=== PATIENT | female | born 1990 | race Two or more races ===

== ENCOUNTER 2016-08-14 05:47 | Emergency (ER) | payer OTHER ==
[~2016-08-14] VITALS: Ht 160 cm; Wt 68.0 kg
[2016-08-14 05:48] VITALS: BP 125/67
[2016-08-14 10:10] LABS: Hepatitis B Surface Antibody Negative
== END 2016-08-14 07:20 | disposition home or self-care (01) ==
LOC: ER 05:55
DX: S51.832A Puncture wound without foreign body of left forearm, initial encounter (principal); W27.3XXA Contact with needle (sewing), initial encounter; Y93.89 Activity, other specified; Y99.8 Other external cause status; Y92.89 Other specified places as the place of occurrence of the external cause
CPT/HCPCS: 36415; 86703; 86706; 86803; 87340

== ENCOUNTER → 2017-07-09 | Outpatient (CLI) | payer BC ==
[2017-07-09 07:58] LABS: Urine WBC None Seen /hpf (0 - 5)
[2017-07-09 08:07] LABS: Basophils # (auto) 0 uL; Basophils % (auto) 0.4 % (0.0-2.0); Eosinophils # (auto) 0.2 uL; Eosinophils % (auto) 2.1 % (0.0-7.0); Hematocrit 40.4 % (36.0-46.0); Hemoglobin 13.8 g/dL (12.2-16.2); Lymphocytes # (auto) 3.1 uL; Lymphocytes % (auto) 43.8 % (10.0-50.0); Mean Corpuscular Hemoglobin 30.7 pg (28.0-32.0); Mean Corpuscular Hgb Conc. 34.3 g/dL (32.0-36.0); Mean Corpuscular Volume 89.6 fL (80.0-100.0); Monocytes # (auto) 0.5 uL; Monocytes % (auto) 6.4 % (0.0-12.0); Neutrophils # (auto) 3.4 uL; Neutrophils % (auto) 47.3 % (37.0-80.0); Nucleated Red Blood Cells % 0.1 %; Platelet Count (auto) 259 10^3/uL (140-450); Red Cell Distribution Width 12.6 % (11.8-14.3); White Blood Cell 7.2 10^3/uL (4.4-10.8)
[2017-07-09 08:45] LABS: Urine Bacteria NONE SEEN /hpf (None Seen); Urine Blood Negative /uL (Negative); Urine Specific Gravity 1.021 (1.001-1.035)
[2017-07-09 08:47] LABS: BUN/Creatinine Ratio 18.5; Potassium 3.7 mmol/L (3.5-5.1)
[2017-07-09 08:48] LABS: Calcium 8.6 mg/dL (8.5-10.1)
[2017-07-09 08:49] LABS: Albumin 4.3 g/dL (3.4-5.0); Bilirubin, Total 1.4 mg/dL (0.2-1.0); Total Protein 7.6 g/dL (6.4-8.2)
== END | disposition home or self-care (01) ==
LOC: LAB 07:41
PROVIDERS: ATTEND Internal Medicine
DX: Z12.4 Encounter for screening for malignant neoplasm of cervix (principal); R53.1 Weakness
CPT/HCPCS: 36415; 80053; 80061; 81001; 82306; 83036; 84443; 85025

== ENCOUNTER → 2018-01-01 | Outpatient (CLI) | payer BC ==
[2018-01-01 08:55] LABS: Basophils # (auto) 0 uL; Basophils % (auto) 0.5 % (0.0-2.0); Eosinophils # (auto) 0.1 uL; Eosinophils % (auto) 2.6 % (0.0-7.0); Hematocrit 40.4 % (36.0-46.0); Hemoglobin 13.8 g/dL (12.2-16.2); Lymphocytes # (auto) 2.9 uL; Lymphocytes % (auto) 52.9 % (10.0-50.0); Mean Corpuscular Hemoglobin 30.4 pg (28.0-32.0); Mean Corpuscular Hgb Conc. 34.2 g/dL (32.0-36.0); Mean Corpuscular Volume 88.9 fL (80.0-100.0); Monocytes # (auto) 0.5 uL; Neutrophils # (auto) 1.9 uL; Nucleated Red Blood Cells % 0.1 %; Platelet Count (auto) 252 10^3/uL (140-450); Red Blood Cells 4.54 10^6/uL (4.0-5.20); Red Cell Distribution Width 12.4 % (11.8-14.3); White Blood Cell 5.5 10^3/uL (4.4-10.8)
[2018-01-01 09:13] LABS: BUN/Creatinine Ratio 12.7; Potassium 3.4 mmol/L (3.5-5.1); Uric Acid 5.3 mg/dL (2.6-6.0)
== END | disposition home or self-care (01) ==
LOC: LAB 08:12
PROVIDERS: ATTEND Internal Medicine
DX: Z12.4 Encounter for screening for malignant neoplasm of cervix (principal); R53.1 Weakness
CPT/HCPCS: 36415; 80048; 82043; 82306; 83036; 84443; 84550; 85025

== ENCOUNTER → 2018-03-18 | Outpatient (CLI) | payer BC | END | disposition home or self-care (01) | LOC: LAB 07:43 | DX: Z11.1 Encounter for screening for respiratory tuberculosis (principal); Z12.4 Encounter for screening for malignant neoplasm of cervix; N39.0 Urinary tract infection, site not specified | CPT/HCPCS: 36415; 86706; 86735; 86762; 86765; 86787 ==

== ENCOUNTER → 2018-08-19 | Outpatient (CLI) | payer OTHER | END | disposition home or self-care (01) | LOC: LAB 13:30 | PROVIDERS: ATTEND Preventive Medicine Preventive Medicine/Occupational Environmental Medicine | DX: Z02.1 Encounter for pre-employment examination (principal) | CPT/HCPCS: 36415; 86706; 86735; 86762; 86765 ==

== ENCOUNTER → 2019-04-21 | Outpatient (CLI) | payer BC ==
[2019-04-21 09:00] LABS: Basophils # (auto) 0 uL; Basophils % (auto) 0.6 % (0.0-2.0); Eosinophils # (auto) 0.1 uL; Eosinophils % (auto) 1.8 % (0.0-7.0); Hematocrit 42.6 % (36.0-46.0); Hemoglobin 14.2 g/dL (12.2-16.2); Lymphocytes # (auto) 3.4 uL; Lymphocytes % (auto) 46.1 % (10.0-50.0); Mean Corpuscular Hemoglobin 30.1 pg (28.0-32.0); Mean Corpuscular Hgb Conc. 33.3 g/dL (32.0-36.0); Mean Corpuscular Volume 90.2 fL (80.0-100.0); Monocytes # (auto) 0.5 uL; Monocytes % (auto) 7.1 % (0.0-12.0); Neutrophils # (auto) 3.2 uL; Neutrophils % (auto) 44.4 % (37.0-80.0); Nucleated Red Blood Cells % 0.2 %; Platelet Count (auto) 246 10^3/uL (140-450); Red Blood Cells 4.73 10^6/uL (4.0-5.20); Red Cell Distribution Width 12.6 % (11.8-14.3); White Blood Cell 7.3 10^3/uL (4.4-10.8)
[2019-04-21 09:12] LABS: Urine Bacteria FEW /hpf (None Seen); Urine Blood Negative /uL (Negative); Urine Specific Gravity 1.004 (1.001-1.035); Urine WBC 1 /hpf (0 - 5)
[2019-04-21 09:25] LABS: Albumin 4.3 g/dL (3.4-5.0); Potassium 3.5 mmol/L (3.5-5.1)
[2019-04-21 09:28] LABS: BUN/Creatinine Ratio 14.3; Bilirubin, Total 2.4 mg/dL (0.2-1.0); Total Protein 7.7 g/dL (6.4-8.2)
== END | disposition home or self-care (01) ==
LOC: LAB 08:45
PROVIDERS: ATTEND Internal Medicine
DX: Z13.228 Encounter for screening for other metabolic disorders (principal); Z13.21 Encounter for screening for nutritional disorder; D51.0 Vitamin B12 deficiency anemia due to intrinsic factor deficiency; E55.9 Vitamin D deficiency, unspecified; R73.09 Other abnormal glucose; J44.9 Chronic obstructive pulmonary disease, unspecified
CPT/HCPCS: 36415; 80053; 81001; 82607; 83036; 84443; 85025

== ENCOUNTER 2019-11-02 19:21 | Emergency (ER) | payer BC ==
[~2019-11-02] VITALS: Ht 160 cm; Wt 68.0 kg
[2019-11-02 20:16] VITALS: BP 108/63
== END 2019-11-02 20:45 | disposition home or self-care (01) ==
LOC: EEVIPCON 19:21 → ER 19:21
DX: J02.9 Acute pharyngitis, unspecified (principal); Z20.828 Contact with and (suspected) exposure to other viral communicable diseases
CPT/HCPCS: 71045; 87070; 87804; 87880; 99284; U0003

== ENCOUNTER → 2020-02-09 | Outpatient (CLI) | payer BC ==
[2020-02-09 15:12] LABS: Urine Blood Negative /uL (Negative); Urine Specific Gravity 1.021 (1.001-1.035)
[2020-02-09 15:13] LABS: Basophils # (auto) 0 10 ^3/uL (0-0.2); Basophils % (auto) 0.4 % (0.0-2.0); Eosinophils # (auto) 0.1 10 ^3/uL (0-0.8); Eosinophils % (auto) 2.6 % (0.0-7.0); Hematocrit 42.4 % (36.0-46.0); Hemoglobin 13.8 g/dL (12.2-16.2); Lymphocytes # (auto) 1.5 10 ^3/uL (0.4-5.4); Lymphocytes % (auto) 31.5 % (10.0-50.0); Mean Corpuscular Hemoglobin 29.4 pg (28.0-32.0); Mean Corpuscular Hgb Conc. 32.7 g/dL (32.0-36.0); Mean Corpuscular Volume 90.1 fL (80.0-100.0); Monocytes # (auto) 0.4 10 ^3/uL (0-1.3); Neutrophils # (auto) 2.7 10 ^3/uL (1.6-8.6); Neutrophils % (auto) 56.5 % (37.0-80.0); Platelet Count (auto) 238 10^3/uL (140-450); Red Cell Distribution Width 12.6 % (11.8-14.3); White Blood Cell 4.8 10^3/uL (4.4-10.8)
[2020-02-09 15:37] LABS: Calcium 8.5 mg/dL (8.5-10.1); Magnesium 2.3 mg/dL (1.6-2.6); Potassium 3.8 mmol/L (3.5-5.1); Uric Acid 3.9 mg/dL (2.6-6.0)
[2020-02-09 15:42] LABS: BUN/Creatinine Ratio 17.5; Bilirubin, Total 1.4 mg/dL (0.2-1.0)
== END | disposition home or self-care (01) ==
LOC: LAB 14:47
PROVIDERS: ATTEND Internal Medicine
DX: Z13.29 Encounter for screening for other suspected endocrine disorder (principal); Z13.21 Encounter for screening for nutritional disorder; R73.09 Other abnormal glucose; J44.9 Chronic obstructive pulmonary disease, unspecified
CPT/HCPCS: 36415; 80053; 80061; 81003; 82306; 82607; 83036; 83735; 84443; 84550; 85025

== ENCOUNTER 2020-04-07 11:24 | Inpatient (IN) | payer BC ==
[~2020-04-07] VITALS: Ht 172.7 cm; Wt 69.0 kg
[2020-04-07 12:01] LABS: Basophils # (auto) 0 10 ^3/uL (0-0.2); Basophils % (auto) 0.2 % (0.0-2.0); Eosinophils # (auto) 0 10 ^3/uL (0-0.8); Hematocrit 40.9 % (36.0-46.0); Hemoglobin 13.9 g/dL (12.2-16.2); Lymphocytes # (auto) 0.5 10 ^3/uL (0.4-5.4); Lymphocytes % (auto) 3.5 % (10.0-50.0); Mean Corpuscular Hemoglobin 30.6 pg (28.0-32.0); Mean Corpuscular Hgb Conc. 33.9 g/dL (32.0-36.0); Mean Corpuscular Volume 90.2 fL (80.0-100.0); Monocytes # (auto) 0.9 10 ^3/uL (0-1.3); Monocytes % (auto) 6.5 % (0.0-12.0); Neutrophils # (auto) 12.9 10 ^3/uL (1.6-8.6); Neutrophils % (auto) 89.8 % (37.0-80.0); Nucleated Red Blood Cells % 0.1 %; Platelet Count (auto) 266 10^3/uL (140-450); Red Blood Cells 4.54 10^6/uL (4.0-5.20); Red Cell Distribution Width 12.6 % (11.8-14.3); White Blood Cell 14.4 10^3/uL (4.4-10.8)
[2020-04-07 12:20] LABS: Alanine Aminotransferase 16 U/L (13-56); Anion Gap 8 (5-15); Aspartate Aminotransferase 18 U/L (15-37); BUN/Creatinine Ratio 15.2; Blood Alcohol < 3.0 mg/dL (0-5); Blood Urea Nitrogen 12 mg/dL (7-18); Calcium 8.9 mg/dL (8.5-10.1); Carbon Dioxide 22 mmol/L (21-32); Chloride 109 mmol/L (98-107); GFR African American 109 mL/min; GFR Non-African American 90 mL/min; Glucose 146 mg/dL (74-106); Potassium 3.3 mmol/L (3.5-5.1); Salicylate 19.9 mg/dL (2.8-20.0); Sodium 139 mmol/L (136-145)
[2020-04-07 12:23] LABS: Alkaline Phosphatase 45 U/L (45-117); Bilirubin, Total 1.3 mg/dL (0.2-1.0); Total Protein 7.3 g/dL (6.4-8.2)
[2020-04-07 12:27] LABS: Acetaminophen < 2.0 ug/mL (10-30)
[2020-04-07] MEDS ORDERED: MORPHINE SULF INJ 2 MG/ML SYRINGE 1ML IV PRN (15:15)
[2020-04-07] MEDS ORDERED: LORazepam 2MG/ML-1ML VIAL IV PRN ×2 (15:15→17:00)
[2020-04-07] MEDS ORDERED: SODIUM CHLORIDE 0.9% 1,000 ML IV SCH (15:15)
[2020-04-07] MEDS ORDERED: ONDANSETRON HCL 4 MG/2 ML VIAL IV PRN (15:15)
[2020-04-07] MEDS ORDERED: LABETALOL HCL 5 MG/ML 4ML SYRINGE IV PRN (15:15)
[2020-04-07] MEDS ORDERED: NITROGLYCERIN 0.4 MG SL TAB SL PRN (15:15)
[2020-04-07] MEDS ORDERED: POTASSIUM CHL 20MEQ/100ML 100 ML IV ONE (15:15)
[2020-04-07 16:29] LABS: Urine Amorphous Crystal FEW /hpf (None Seen); Urine Bacteria FEW /hpf (None Seen); Urine Blood 1+ /uL (Negative); Urine Hyaline Cast FEW /lpf (0 - 2); Urine Mucus FEW (None Seen); Urine Specific Gravity 1.016 (1.001-1.035); Urine WBC 5 /hpf (0 - 5)
[2020-04-07 16:42] LABS: Alcohol, Urine < 3.0 mg/dL (0-10); Amphetamine Screen, Urine NEGATIVE (NEGATIVE); Barbiturate Scree,Urine NEGATIVE (NEGATIVE); Benzodiazephine Screen, Urine NEGATIVE (NEGATIVE); Cannabinoid Screen, Urine NEGATIVE (NEGATIVE); Cocaine Screen, Urine NEGATIVE (NEGATIVE); Opiate Scree,Urine NEGATIVE (NEGATIVE); Phencyclidine Screen, Urine NEGATIVE (NEGATIVE)
[2020-04-07] MEDS ORDERED: SERT-274 PO (18:10)
[2020-04-07] MEDS ORDERED: DIPH-515 PO (18:12)
[2020-04-07] MEDS ORDERED: MELA5TAB10 PO (18:12)
[2020-04-07 21:56] VITALS: BP 104/77
[2020-04-07] MEDS ORDERED: BUDESONIDE (INHALATION) 180 MCG IH IN SCH (22:00)
[2020-04-07] MEDS ORDERED: ALBUTEROL SULF HFA 90MCG INH 200DOSE IN SCH (22:00)
[2020-04-07] MEDS: DOXYCYCLINE 100MG/250ML 250 ML IV SCH (22:09)
[2020-04-08 04:33] VITALS: BP 106/67
[2020-04-08 07:09] LABS: Basophils # (auto) 0 10 ^3/uL (0-0.2); Basophils % (auto) 0.3 % (0.0-2.0); Eosinophils # (auto) 0.1 10 ^3/uL (0-0.8); Eosinophils % (auto) 1.1 % (0.0-7.0); Hematocrit 34.7 % (36.0-46.0); Hemoglobin 11.9 g/dL (12.2-16.2); Lymphocytes # (auto) 1.5 10 ^3/uL (0.4-5.4); Lymphocytes % (auto) 16.7 % (10.0-50.0); Mean Corpuscular Hemoglobin 31.3 pg (28.0-32.0); Mean Corpuscular Hgb Conc. 34.3 g/dL (32.0-36.0); Mean Corpuscular Volume 91.3 fL (80.0-100.0); Monocytes # (auto) 0.6 10 ^3/uL (0-1.3); Monocytes % (auto) 6.5 % (0.0-12.0); Neutrophils # (auto) 6.7 10 ^3/uL (1.6-8.6); Neutrophils % (auto) 75.4 % (37.0-80.0); Nucleated Red Blood Cells % 0.1 %; Platelet Count (auto) 231 10^3/uL (140-450); Red Cell Distribution Width 13.1 % (11.8-14.3); White Blood Cell 8.9 10^3/uL (4.4-10.8)
[2020-04-08 07:20] LABS: Albumin 3.4 g/dL (3.4-5.0); Calcium 8.3 mg/dL (8.5-10.1); Magnesium 2.2 mg/dL (1.6-2.6); Potassium 3.3 mmol/L (3.5-5.1)
[2020-04-08 07:30] LABS: BUN/Creatinine Ratio 16.9; Bilirubin, Total 1.5 mg/dL (0.2-1.0); CRP High Sensitivity 5.78 mg/dL (< 0.3); Total Protein 6.2 g/dL (6.4-8.2)
[2020-04-08 08:59] VITALS: BP 105/60
[2020-04-08] MEDS: PANTOPRAZOLE 40 MG/10 ML VIAL INJ IV SCH (09:47)
[2020-04-08] MEDS: DOXYCYCLINE 100MG/250ML 250 ML IV SCH ×2 (09:48→22:27)
[2020-04-08] MEDS: ENOXAPARIN SOD 40 MG/0.4 ML SYRINGE SC SCH (09:48)
[2020-04-08] MEDS ORDERED: AZITHROMYCIN 500MG/ 250ML 250 ML IV SCH (10:00)
[2020-04-08] MEDS: CITALOPRAM HYDROBR 20 MG TAB PO SCH (12:43)
[2020-04-08 16:29] VITALS: BP 107/70
[2020-04-08 22:00] VITALS: BP_SYST 107; BP_SYST 98; BP_DIAS 59; BP_DIAS 70
[2020-04-09 04:54] VITALS: BP 107/69
[2020-04-09 05:42] VITALS: BP 107/69
[2020-04-09 08:44] VITALS: BP 112/68
[2020-04-09] MEDS: PANTOPRAZOLE 40 MG/10 ML VIAL INJ IV SCH (10:44)
[2020-04-09] MEDS: DOXYCYCLINE 100MG/250ML 250 ML IV SCH ×2 (10:44→22:07)
[2020-04-09] MEDS: CITALOPRAM HYDROBR 20 MG TAB PO SCH (10:45)
[2020-04-09] MEDS: ENOXAPARIN SOD 40 MG/0.4 ML SYRINGE SC SCH (10:45)
[2020-04-09 10:47] LABS: Calcium 8.4 mg/dL (8.5-10.1); Potassium 3.4 mmol/L (3.5-5.1)
[2020-04-09 10:51] LABS: BUN/Creatinine Ratio 17.4
[2020-04-09] MEDS: D5W/SOD CHL 0.45%/KCL 20MEQ 1,000 ML IV SCH (12:30)
[2020-04-09 13:00] VITALS: BP 100/68
[2020-04-09 17:02] VITALS: BP 108/66
[2020-04-09 21:32] VITALS: BP 102/65
[2020-04-10 04:32] VITALS: BP 91/54
[2020-04-10] MEDS: D5W/SOD CHL 0.45%/KCL 20MEQ 1,000 ML IV SCH ×2 (05:38→15:10)
[2020-04-10 09:00] VITALS: BP 99/53
[2020-04-10] MEDS: PANTOPRAZOLE 40 MG/10 ML VIAL INJ IV SCH (09:28)
[2020-04-10] MEDS: CITALOPRAM HYDROBR 20 MG TAB PO SCH (09:28)
[2020-04-10] MEDS: ENOXAPARIN SOD 40 MG/0.4 ML SYRINGE SC SCH (09:28)
[2020-04-10] MEDS: DOXYCYCLINE 100MG/250ML 250 ML IV SCH ×2 (09:28→22:26)
[2020-04-10 17:00] VITALS: BP 110/69
[2020-04-10 22:00] VITALS: BP 100/62
[2020-04-10] MEDS ORDERED: D5W/SOD CHL 0.45%/KCL 20MEQ 1,000 ML IV SCH (23:45)
[2020-04-11 05:00] VITALS: BP 95/53
[2020-04-11] MEDS ORDERED: CITALOPRAM HYDROBR 20 MG TAB PO SCH (10:00)
[2020-04-11] MEDS ORDERED: PANTOPRAZOLE 40 MG TAB PO SCH (10:00)
[2020-04-11 10:01] VITALS: BP 110/69
[2020-04-11] MEDS: ENOXAPARIN SOD 40 MG/0.4 ML SYRINGE SC SCH (10:48)
== END 2020-04-11 14:59 | DRG 917 ==
LOC: EDBD 11:24 → EDUNIT# 11:24 → ER 11:24 → EEVIPCON 11:24 → TELE 11:25 → TELE-WESTW 19:55
PROVIDERS: ATTEND Internal Medicine
DX: T42.4X1A Poisoning by benzodiazepines, accidental (unintentional), initial encounter (principal); G92 Toxic encephalopathy; R65.10 Systemic inflammatory response syndrome (SIRS) of non-infectious origin without acute organ dysfunction; Z20.828 Contact with and (suspected) exposure to other viral communicable diseases; Z72.820 Sleep deprivation; Z75.1 Person awaiting admission to adequate facility elsewhere; F32.9 Major depressive disorder, single episode, unspecified; E87.6 Hypokalemia; E86.0 Dehydration; Z80.9 Family history of malignant neoplasm, unspecified; Z82.49 Family history of ischemic heart disease and other diseases of the circulatory system; Z91.5 Personal history of self-harm; Y92.89 Other specified places as the place of occurrence of the external cause
CPT/HCPCS: 36415; 51702; 70450; 70551; 71045; 80048; 80053; 80307; 80320; 80329; 81001; 81025; 82728; 83036; 83605; 83615; 83735; 84132; 84443; 85025; 85379; 86141; 87040; 87086; 87426; 95819; 96360; 96361; 99291; C9113; G0378; J3480; J3490

== ENCOUNTER → 2020-05-22 | Outpatient (CLI) | payer BC ==
[~2020-05-22] MED LIST: DIPH-515 PO; MELA5TAB10 PO; SERT-274 PO
[2020-05-22 08:15] LABS: Basophils # (auto) 0 10 ^3/uL (0-0.2); Basophils % (auto) 0.5 % (0.0-2.0); Eosinophils # (auto) 0.1 10 ^3/uL (0-0.8); Eosinophils % (auto) 2.4 % (0.0-7.0); Hematocrit 41.9 % (36.0-46.0); Hemoglobin 13.8 g/dL (12.2-16.2); Lymphocytes # (auto) 2.2 10 ^3/uL (0.4-5.4); Lymphocytes % (auto) 39.9 % (10.0-50.0); Mean Corpuscular Hemoglobin 29.9 pg (28.0-32.0); Mean Corpuscular Volume 90.7 fL (80.0-100.0); Monocytes # (auto) 0.3 10 ^3/uL (0-1.3); Neutrophils # (auto) 2.9 10 ^3/uL (1.6-8.6); Neutrophils % (auto) 52.2 % (37.0-80.0); Platelet Count (auto) 208 10^3/uL (140-450); Red Blood Cells 4.62 10^6/uL (4.0-5.20); White Blood Cell 5.6 10^3/uL (4.4-10.8)
[2020-05-22 08:39] LABS: Albumin 3.6 g/dL (3.4-5.0); BUN/Creatinine Ratio 18.3; Bilirubin, Total 1.1 mg/dL (0.2-1.0); Calcium 8.5 mg/dL (8.5-10.1); Potassium 3.6 mmol/L (3.5-5.1); Total Protein 6.6 g/dL (6.4-8.2); Uric Acid 4.2 mg/dL (2.6-6.0)
[2020-05-22 08:46] LABS: Urine Bacteria FEW /hpf (None Seen); Urine Blood Negative /uL (Negative); Urine Mucus FEW (None Seen); Urine Specific Gravity 1.024 (1.001-1.035); Urine WBC <1 /hpf (0 - 5)
== END | disposition home or self-care (01) ==
LOC: LAB 07:58
PROVIDERS: ATTEND Internal Medicine
DX: E55.9 Vitamin D deficiency, unspecified (principal); D50.8 Other iron deficiency anemias; R68.89 Other general symptoms and signs; R79.89 Other specified abnormal findings of blood chemistry; E78.49 Other hyperlipidemia; R73.09 Other abnormal glucose; E61.2 Magnesium deficiency
CPT/HCPCS: 36415; 80053; 80061; 81001; 82306; 83036; 84443; 84550; 85025

== ENCOUNTER 2020-06-22 21:46 | Emergency (ER) | payer BC, OTHER ==
[~2020-06-22] VITALS: Ht 160 cm; Wt 72.6 kg
[2020-06-22 22:30] VITALS: BP 112/72
[2020-06-22] MEDS ORDERED: TETANUS-DIPTH-ACEL PERTUSSIS 0.5ML SYR Tdap IM ONE (22:30)
[2020-06-23 01:42] LABS: Hepatitis B Surface Antibody Positive
[2020-06-23 05:10] LABS: Hepatitis B Surface Antigen Negative (Negative)
== END 2020-06-23 00:18 | disposition home or self-care (01) ==
LOC: ER 21:49
DX: S67.02XA Crushing injury of left thumb, initial encounter (principal); W46.1XXA Contact with contaminated hypodermic needle, initial encounter; Y93.89 Activity, other specified; Y92.89 Other specified places as the place of occurrence of the external cause; Y99.8 Other external cause status
CPT/HCPCS: 36415; 86703; 86706; 86803; 87340; 90471; 90715

== ENCOUNTER → 2020-08-30 | Outpatient (CLI) | payer BC ==
[2020-08-30 11:06] LABS: Urine Amorphous Crystal FEW /hpf (None Seen); Urine Bacteria FEW /hpf (None Seen); Urine Blood Negative /uL (Negative); Urine Mucus FEW (None Seen); Urine Specific Gravity 1.019 (1.001-1.035); Urine WBC 349 /hpf (0 - 5); Urine WBC Clumps PRESENT /hpf (None Seen)
== END | disposition home or self-care (01) ==
LOC: LAB 10:43
PROVIDERS: ATTEND Internal Medicine
DX: R82.90 Unspecified abnormal findings in urine (principal)
CPT/HCPCS: 81001; 87086

== ENCOUNTER → 2023-12-11 | Outpatient (CLI) | payer BC ==
[~2023-12-11] MED LIST changes: +SERT-206 PO; -SERT-274 PO
[2023-12-12 08:06] LABS: Mumps IgG Antibody 12.3 AU/mL (Immune >10.9)
== END | disposition home or self-care (01) ==
LOC: LAB 11:54
PROVIDERS: ATTEND Internal Medicine
DX: Z23 Encounter for immunization (principal)
CPT/HCPCS: 36415; 86706; 86735; 86762; 86765; 86787

== ENCOUNTER → 2024-11-08 | Day surgery (SDC) | payer BC ==
[2024-11-04 13:01] LABS: INR 1.15 (0.9-1.15); Partial Thromboplastin Time 29.5 SEC (24.5-34.5)
[2024-11-04 13:06] LABS: Alanine Aminotransferase 15 U/L (7-40); Albumin 4.4 g/dL (3.2-4.8); Anion Gap 9 (5-15); Aspartate Aminotransferase 15 U/L (13-40); BUN/Creatinine Ratio 13.6 (10.0-20.0); Calcium 9.1 mg/dL (8.7-10.4); Carbon Dioxide 29 mmol/L (20-31); Chloride 104 mmol/L (98-107); Glucose 76 mg/dL (74-106); Potassium 3.6 mmol/L (3.5-5.1); Sodium 142 mmol/L (136-145); Total Protein 6.6 g/dL (5.7-8.2)
[2024-11-04 13:14] LABS: Alkaline Phosphatase 41 U/L (46-116); Bilirubin, Total 2.3 mg/dL (0.2-1.0); Blood Urea Nitrogen 9 mg/dL (9-23)
[2024-11-04 15:03] LABS: Basophils # (auto) 0 10 ^3/uL (0-0.2); Eosinophils # (auto) 0.1 10 ^3/uL (0-0.8); Eosinophils % (auto) 2.1 % (0.0-7.0); Hematocrit 40.1 % (36.0-46.0); Hemoglobin 13.6 g/dL (12.2-16.2); Lymphocytes # (auto) 1.9 10 ^3/uL (0.4-5.4); Lymphocytes % (auto) 51.6 % (10.0-50.0); Mean Corpuscular Hemoglobin 29.9 pg (28.0-32.0); Mean Corpuscular Hgb Conc. 33.9 g/dL (32.0-36.0); Mean Corpuscular Volume 88.1 fL (80.0-100.0); Monocytes # (auto) 0.2 10 ^3/uL (0-1.3); Monocytes % (auto) 6.4 % (0.0-12.0); Neutrophils # (auto) 1.4 10 ^3/uL (1.6-8.6); Neutrophils % (auto) 38.9 % (37.0-80.0); Nucleated Red Blood Cells % 0.2 %; Platelet Count (auto) 216 10^3/uL (140-450); Red Blood Cells 4.55 10^6/uL (4.0-5.20); Red Cell Distribution Width 12.8 % (11.8-14.3); White Blood Cell 3.7 10^3/uL (4.4-10.8)
[~2024-11-08] VITALS: Ht 160 cm; Wt 54.4 kg
[~2024-11-08] MED LIST changes: -DIPH-515 PO; +FLUO40CA2 PO; +HYDROmorphone HCL 2 MG/ML VL/or syr IV PRN; +KETOROLAC TROMETH 30 MG/ML 1ML VIAL IV ONE; +LIDOCAINE 2% (LOCAL ANESTH.) PF 5ml SDV ONE; -MELA5TAB10 PO; +METOCLOPRAMIDE HCL 5MG/ml INJ 2ml VIAL ONE; +MIDAZOLAM HCL 2MG/2ML 2ml VIAL (1mg/ml) ONE; +ONDANSETRON HCL 4 MG/2 ML VIAL IV ONE; +ONDANSETRON HCL 4 MG/2 ML VIAL ONE; +PROPOFOL 10 MG/ML 20 ML IV ONE; -SERT-206 PO; +ceFAZolin 2 GM/D5W50ml 50 ML IV ONE; +fentaNYL CITRATE 100 MCG/2 ML VL ONE
--- NOTE | 2024-11-08 07:33 | DVHOP2 ---
Operative Report - 2 Report Details Date: 11/08/24 Preop Diagnosis: Right dequervain tendonitis Postop Diagnosis: as above Surgeon: Stan Hernandez MD Technical Maintenance Technician: Isai ORTIZ Anesthesiologist: SHARRI Anesthesia: Local Consent: The patient was informed of the risks and benefits of the procedure. These include but are not limited to complications of anesthesia, postoperative infection, incomplete relief of symptoms, recurrence of symptoms, damage to blood vessels, nerves and tendons, deep venous thrombosis, pulmonary embolism and possible need for repeat surgery in the future. Estimated Blood Loss: 1 cc Indications for Surgery: The patient has a history of Right de quervain. She has had cortisone injections, NSAID's without improvement and now presents fo release. Name of Procedure Performed Right dequervain tendon release, extensor tendon debridement Procedure Details Procedure Details: After administering appropriate antibiotics and anesthesia, the upper extremity was prepped and draped in the usual standard fashion. The arm was exsanguinated with Esmarch, and the tourniquet inflated to 250 mmHg. A vertical incision was made over the left radial styloid. Dissection was carried down to the extensor sheath with care taken to identify and protect the neurovascular bundles. The sheath was opened under direct vision with a scalpel, and then a scissor was used to release it under direct vision from the proximal extent.. Meticulous hemostasis was maintained with electrocautery. The tendons were identified and atraumatically pulled to ensure that no triggering remained. Patient was noted to have a significant synovitis on tendons so these were gently debrided with synovectomy of her tendons. After irrigating out the wound with copious amounts of sterile saline, the skin was closed with monocryl. Condition Good Disposition Home STAN HERNANDEZ . November 08, 2024 07:33
[2024-11-08] MEDS: LIDOCAINE 1% HCL (LOCAL ANESTH.) INJ 20ML MDV ONE (07:44)
[2024-11-08] MEDS: BUPIVACAINE 0.5% P/F INJ 10 ML VIAL ONE (07:44)
[2024-11-08 07:46] VITALS: PULSE 65; RESP 12; O2SAT 95
[2024-11-08 08:47] VITALS: BP 97/59; PULSE 53; RESP 13; O2SAT 100
== END | disposition home or self-care (01) ==
LOC: SUR 06:11
PROVIDERS: ATTEND Orthopaedic Surgery Adult Reconstructive Orthopaedic Surgery
DX: M65.4 Radial styloid tenosynovitis [de Quervain] (principal); M65.861 Other synovitis and tenosynovitis, right lower leg; F32.9 Major depressive disorder, single episode, unspecified; F41.9 Anxiety disorder, unspecified; Z79.899 Other long term (current) drug therapy; Z98.890 Other specified postprocedural states
CPT/HCPCS: 25000; 25118; 36415; 80053; 83036; 84702; 85025; 85610; 85730; J0690; J2003; J2250; J2405; J2704; J2765; J3010; J3490; 93458